=== PATIENT | male | born 1980 | race African-American/Black ===

== ENCOUNTER 2018-06-03 01:29 | Emergency (ER) | payer MEDICAID, OTHER ==
[~2018-06-03] VITALS: Ht 190.5 cm; Wt 121.6 kg
[2018-06-03] MEDS ORDERED: NKM (01:37)
[2018-06-03 01:45] VITALS: BP 150/98
[2018-06-03] MEDS ORDERED: Acetaminophen 500mg (ES) tab PO ONE (02:00)
[2018-06-03] MEDS ORDERED: Tetanus/Diptheria/Pertussis Vaccine 0.5ml Syr IM ONE (02:00)
[2018-06-03] MEDS ORDERED: Lidocaine 1% MPF 10mg/ml 5ml INJ ONE ×2 (02:00→04:15)
--- NOTE | 2018-06-03 02:09 | Emergency Room Report ---
History of Present Illness General Chief Complaint: Laceration Source: Patient Present Illness HPI Pt. c/o lac to left third finger from a gate. He was trying to get away from a dog that he thought was going to bite him. Shortly [employer]. No other complaints, no shortness of breath, no chest pain, no nausea, no vomiting, no abdominal pain, no syncope, LOC, dizziness, lightheadedness, headache. No PMH. Allergies: Coded Allergies: No Known Allergies (Unverified , 06/03/18) Nursing Documentation-PMH Past Medical History: No Stated History Review of Systems Constitutional: Denies: fever Eye: Denies: acuity changes Respiratory: Denies: cough, shortness of breath Cardiovascular: Denies: chest pain Gastrointestinal: Denies: nausea, vomiting Skin: Denies: rash Neurological: Denies: headache Physical Exam Vital Signs Date Time Temp Pulse Resp B/P (MAP) Pulse Ox O2 Delivery O2 Flow Rate FiO2 06/03/18 01:33 97.4 94 18 150/98 97 Room Air 97.3 General Appearance: well appearing, no apparent distress Head: normocephalic, atraumatic ENT: hearing grossly normal, normal voice Neck: full range of motion, supple Respiratory: no respiratory distress, speaking full sentences Musculoskeletal: other - long deep lac left third finger; there is good rom all phalanges. the lac is volar surface, medial aspect, extending to posterior aspect, running the length of the digit. about seven cm Neurologic: alert, normal gait Psychiatric: mood/affect normal Skin: no rash Procedures Laceration/Wound Repair Laceration/Wound Repair : Consent: Emergent Wound Location: upper extremity Wound's Depth, Shape: into muscle, irregular, contused tissue Wound Explored: contaminated Betadine Prep?: Yes Anesthesia: 1% Lidocaine Wound Debrided: minimal Wound Repaired With: sutures Suture Size/Type: 5:0 Number of Sutures: 10 Layer Closure?: Yes Deep Layer Suture Size/Type: 5:0 Number Deep Layer Sutures: 3 Sterile Dressing Applied?: Yes Splint Applied?: Yes Patient Tolerated: Well Complications: Other - very awkward area to suture; jagged/vertical length of digit with Y-flap lac distally. examined for fb small dirt fragments removed. no fb seen. (xr noted) Medical Decision Making Diagnostic Impression: Primary Impression: Laceration ER Course 7 cm left finger laceration and repair; deep numbed, soaked betadine/saline, inspected for fb, minor debridement and cleansed. will rx. keflex due to location (distal), length, depth, dirty wound Other X-Ray Diagnostic Results Other X-Ray Diagnostic Results : # of Views/Limited Vs Complete: 2 View Indication: Pain EP Interpretation: Yes Interpretation: no soft tissue swelling, no fractures, other - could be small metal middle phalynx soft tissue Impression: No acute disease Last Vital Signs Date Time Temp Pulse Resp B/P (MAP) Pulse Ox O2 Delivery O2 Flow Rate FiO2 06/03/18 01:45 97.3 94 18 150/98 97 Room Air 97.3 Condition: Improved Referrals: [facility],REFERRING (PCP) Patient Instructions: Laceration Care, Adult Kareem Coleman M.D. Jun 03, 2018 02:09
--- NOTE | 2018-06-03 03:17 | Diagnostic Imaging Report ---
EXAM: XR Left Finger(s), 2 or More Views CLINICAL HISTORY: FX TECHNIQUE: Frontal, lateral and oblique views of finger(s) of the left hand. COMPARISON: No relevant prior studies available. FINDINGS: Bones/joints: Unremarkable. No acute fracture. No dislocation. Soft tissues: Unremarkable. No radiopaque foreign body. IMPRESSION: Normal x-rays of the visualized left fingers.
[2018-06-03] MEDS ORDERED: CEPHALEXIN500 MG ORAL (04:04)
[2018-06-03 04:18] VITALS: BP 150/98
== END 2018-06-03 04:18 | disposition home or self-care (01) ==
LOC: EMR 01:53
DX: S61.213A Laceration without foreign body of left middle finger without damage to nail, initial encounter (principal); W45.8XXA Other foreign body or object entering through skin, initial encounter; Y92.9 Unspecified place or not applicable; Z23 Encounter for immunization
CPT/HCPCS: 13132; 73140; 90471; 90715; 96372; 99285; J0690; Z7502